=== PATIENT | female | born 1955 | race African-American/Black ===

== ENCOUNTER 2016-06-09 18:12 | Inpatient (IN) | payer SELFPAY ==
[2016-06-09] VITALS (9 sets, daily range): BP systolic 148–249; BP diastolic 70–128; PULSE 77–86; RESP 18; TEMP 97.8; O2SAT 96–98
[~2016-06-09] VITALS: Ht 157.5 cm; Wt 72.0 kg
[~2016-06-09 18:12] MED LIST: DICL50 PO
--- NOTE | 2016-06-09 18:52 | PD ---
HPI Chief Complaint: Neuro Symptoms/ Deficits Time Seen by Provider: 18:52 Travel History International Travel<30 days: No Contact w/Intl Traveler<30days: No Traveled to known affect area: No History of Present Illness HPI 60-year-old female presents to the emergency department for evaluation of numbness and tingling in right hand and right foot for about 3 hours. States that she took a nap this afternoon and when she woke up she had tingling in her right hand and foot which has persisted. States she called fire rescue who came out and noted her blood pressure was very elevated around 240/120. Patient admits to a history of hypertension but does not take any medications because she has not followed up with her PCP Dr. Ricardo in a while. She is complaining of a mild headache with lightheadedness. Denies any weakness, vision loss, nausea, vomiting, chest pain, shortness of breath, cough or cold symptoms. Denies any history of stroke or [place]. No other complaints. PFSH Past Medical History Cardiovascular Problems: Yes (PT STATES DOES NO TAKE MED) Diminished Hearing: No Hypertension: Yes Tetanus Vaccination: > 5 Years Influenza Vaccination: No ?: Not Past Surgical History Surgical History: No Previous Surgery Social History Alcohol Use: Yes (EVERY DAY 4-6 BEERS) Tobacco Use: Yes (1 PACK PER DAY) Substance Use: No Allergies-Medications (Allergen,Severity, Reaction): Coded Allergies: No Known Allergies (Unverified , 06/09/16) Reported Meds & Prescriptions Reported Meds & Active Scripts Active No Active Prescriptions or Reported Medications Review of Systems Except as stated in HPI: all other systems reviewed are Neg Physical Exam Narrative GENERAL: Well-nourished and well-developed pleasant female patient in no acute distress. SKIN: Warm and dry. HEAD: Normocephalic and atraumatic. No facial droop. EYES: No injection, drainage, or hyphema noted. PERRLA. EOMI. ENT: No nasal drainage noted. Oropharynx is clear. NECK: Supple and the trachea is midline. CARDIOVASCULAR: Regular rate and rhythm. RESPIRATORY: Breath sounds are equal bilaterally with no accessory muscle use, wheezing, rhonchi, or crackles. GASTROINTESTINAL: Abdomen is soft, non-tender, and nondistended. MUSCULOSKELETAL: No obvious deformities, swelling, cyanosis, or ecchymosis is present throughout the upper and lower extremities. Patient has full range of motion without any signs of neurovascular compromise. Strength 5/5 upper and lower extremities and equal bilaterally. NEUROLOGICAL: Awake, alert, and oriented. Normal speech and gait. Finger to nose test is normal. [id number] test is normal. No pronator drift. Cranial nerves are grossly intact. Reports paresthesias in right hand and right foot. Data Data Last Documented VS Vital Signs Date Time Temp Pulse Resp B/P Pulse Ox O2 Delivery O2 Flow Rate FiO2 06/09/16 20:17 86 18 238/117 06/09/16 19:05 96 Room Air 06/09/16 18:38 97.8 Orders Labetalol Inj (Trandate Inj) (06/09/16 19:00) Complete Blood Count With Diff (06/09/16 18:50) Comprehensive Metabolic Panel (06/09/16 18:50) Prothrombin Time / Inr (Pt) (06/09/16 18:50) Act Partial Throm Time (Ptt) (06/09/16 18:50) Iv Access Insert/Monitor (06/09/16 18:50) Ecg Monitoring (06/09/16 18:50) Oximetry (06/09/16 18:50) Sodium Chloride 0.9% Flush (Ns Flush) (06/09/16 19:00) Electrocardiogram (06/09/16 18:50) Chest, Single Ap (06/09/16 18:50) Ct Brain W/O Iv Contrast(Rout) (06/09/16 18:50) Hydralazine Inj (Apresoline Inj) (06/09/16 19:45) Labetalol Inj (Trandate Inj) (06/09/16 20:30) Admit Order (Ed Use Only) (06/09/16 21:05) Labs Laboratory Tests Test 06/09/16 06/09/16 19:05 20:00 White Blood Count 6.3 TH/MM3 Red Blood Count 4.58 MIL/MM3 Hemoglobin 12.3 GM/DL Hematocrit 37.8 % Mean Corpuscular Volume 82.4 FL Mean Corpuscular Hemoglobin 26.8 PG Mean Corpuscular Hemoglobin 32.5 % Concent Red Cell Distribution Width 15.7 % Platelet Count 203 TH/MM3 Mean Platelet Volume 8.7 FL Neutrophils (%) (Auto) % Lymphocytes (%) (Auto) % Monocytes (%) (Auto) % Eosinophils (%) (Auto) % Basophils (%) (Auto) % Neutrophils # (Auto) TH/MM3 Lymphocytes # (Auto) TH/MM3 Monocytes # (Auto) TH/MM3 Eosinophils # (Auto) TH/MM3 Basophils # (Auto) TH/MM3 CBC Comment AUTO DIFF Differential Total Cells 100 Counted Neutrophils % (Manual) 58 % Band Neutrophils % 1 % Lymphocytes % 35 % Monocytes % 4 % Eosinophils % 2 % Neutrophils # (Manual) 3.7 TH/MM3 Differential Comment FINAL DIFF MANUAL Platelet Estimate NORMAL Platelet Morphology Comment NORMAL Target Cells 1+ Ovalocytes 1+ Acanthocytes OCC Keratocytes OCC Prothrombin Time 9.7 SEC Prothromb Time International 0.9 RATIO Ratio Activated Partial 26.7 SEC Thromboplast Time Sodium Level 142 MEQ/L Potassium Level 4.2 MEQ/L Chloride Level 111 MEQ/L Carbon Dioxide Level 23.3 MEQ/L Anion Gap 8 MEQ/L Blood Urea Nitrogen 19 MG/DL Creatinine 1.98 MG/DL Estimat Glomerular Filtration 31 ML/MIN Rate Random Glucose 89 MG/DL Calcium Level 8.5 MG/DL Total Bilirubin 0.3 MG/DL Aspartate Amino Transf 32 U/L (AST/SGOT) Alanine Aminotransferase 32 U/L (ALT/SGPT) Alkaline Phosphatase 91 U/L Total Protein 7.0 GM/DL Albumin 3.0 GM/DL [facility] Medical Decision Making Medical Screen Exam Complete: Yes Emergency Medical Condition: Yes Differential Diagnosis Hypertensive urgency versus intracranial hemorrhage versus TIA versus stroke versus other Narrative Course 60-year-old female presents to the emergency department for evaluation of numbness and tingling in the right hand and right foot with high blood pressure. The patient is afebrile. Her blood pressure is elevated to 223/128. She reports paresthesias in the right hand and right foot but there is no motor weakness. No focal neurologic deficits. IV access is obtained, labs are been drawn and sent. Patient is given labetalol 10 mg IV. EKG shows sinus rhythm with no acute ST elevations or depressions. 20 minutes after labetalol patient is reassessed and her blood pressure has remained unchanged. She is given hydralazine 10 mg IV. CBC is unremarkable. CMP reveals renal insufficiency which appears to be consistent with previous lab values at our facility. Chest x-ray is unremarkable. Head CT is unremarkable. The patient is reassessed and reports some mild improvement in her right hand and right foot paresthesias. Denies any weakness or worsening headache. Her blood pressure has remained elevated and unchanged despite labetalol and hydralazine. Therefore we'll place the patient on a labetalol drip. She'll be admitted to medicine service into the [facility]. I discussed the case with my attending physician Dr. Antonio who is aware of the patients history, physical examination findings, and treatment plan. Physician Communication Physician Communication I spoke with Dr. Baez [facility] who agrees to admit the patient to her service. Diagnosis Primary Impression: Hypertensive urgency Admitting Information Admitting Physician Requests: Admit Scripts No Active Prescriptions or Reported Meds Arlene Hernandez Jun 09, 2016 18:52
[2016-06-09] MEDS ORDERED: LABETALOL HCL 100 MG/20 ML VIAL IV PUSH ONE (19:00)
[2016-06-09] MEDS ORDERED: SODIUM CHLORIDE 0.9% FLUSH 5 ML FLUSH IVF PRN (19:00)
--- NOTE | 2016-06-09 19:11 | RADRPT ---
EXAM DATE/TIME: 06/09/2016 19:00 [facility] COMPARISON: No previous studies available for comparison. INDICATIONS : Chest pain MEDICAL HISTORY : Hypertension. SURGICAL HISTORY : None. ENCOUNTER: Initial ACUITY: 1 day PAIN SCORE: 0/10 LOCATION: Bilateral chest FINDINGS: A single view of the chest demonstrates the lungs to be symmetrically aerated without evidence of mas s, infiltrate or effusion. The cardiomediastinal contours are unremarkable. Osseous structures are intact. CONCLUSION: No evidence of acute cardiopulmonary disease. Vik Talley MD on June 09, 2016 at 19:09 Board Certified Radiologist. This report was verified electronically.
[2016-06-09 19:18] LABS: HEMATOCRIT 37.8 % (35.0-46.0); MEAN CELL VOLUME 82.4 FL (80.0-100.0); MEAN CORPUSCULAR HEMOGLOBIN 26.8 PG (27.0-34.0); MEAN CORPUSCULAR HGB CONC 32.5 % (32.0-36.0); PLATELET COUNT 203 TH/MM3 (150-450); RED BLOOD COUNT 4.58 MIL/MM3 (4.00-5.30); RED CELL DISTRIBUTION WIDTH 15.7 % (11.6-17.2); WHITE BLOOD COUNT 6.3 TH/MM3 (4.0-11.0)
[2016-06-09 19:30] LABS: APTT (PATIENT) 26.7 SEC (24.3-30.1); INTERNATIONAL NORMALIZED RATIO 0.9 RATIO; PROTHROMBIN TIME - PATIENT 9.7 SEC (9.8-11.6)
[2016-06-09 19:31] LABS: HEMO FLAGS AUTO DIFF
[2016-06-09] MEDS ORDERED: hydrALAZINE HCL 20 MG/ML VIAL IV PUSH ONE (19:45)
--- NOTE | 2016-06-09 19:49 | RADRPT ---
EXAM DATE/TIME: 06/09/2016 19:20 [facility] COMPARISON: No previous studies available for comparison. INDICATIONS : Right-sided weakness and numbness. RADIATION DOSE: 56.77 CTDIvol (mGy) MEDICAL HISTORY : Hypertension. SURGICAL HISTORY : None. ENCOUNTER: Initial ACUITY: 1 day PAIN SCALE: 0/10 LOCATION: Right cranial TECHNIQUE: Multiple contiguous axial images were obtained of the head. Using automated exposure control and adj ustment of the mA and/or kV according to patient size, radiation dose was kept as low as reasonably a chievable to obtain optimal diagnostic quality images. FINDINGS: CEREBRUM: The ventricles are normal for age. No evidence of midline shift, mass lesion, hemorrhage or acute in farction. No extra-axial fluid collections are seen. POSTERIOR FOSSA: The cerebellum and brainstem are intact. The 4th ventricle is midline. The cerebellopontine angle i s unremarkable. EXTRACRANIAL: The visualized portion of the orbits is intact. SKULL: The calvaria is intact. No evidence of skull fracture. CONCLUSION: Negative noncontrast head CT. Vik Talley MD on June 09, 2016 at 19:48 Board Certified Radiologist. This report was verified electronically.
[2016-06-09 20:15] LABS: BANDS 1 % (0-6); EOSINOPHILS 2 % (0-4); NEUTROPHIL # MANUAL DIFF 3.7 TH/MM3 (1.8-7.7); POLYS (SEG NEUTROPHILS) 58 % (16-70); WBC DIFF SAMPLE 100
[2016-06-09 20:17] LABS: ACANTHOCYTES OCC (NORMAL); KERATOCYTES OCC (NORMAL); OVALOCYTES 1+ (NORMAL)
[2016-06-09 20:19] LABS: PLATELET ESTIMATE SMEAR NORMAL (NORMAL); PLATELET MORPHOLOGY NORMAL (NORMAL); SCAN/DIFF FINAL DIFF MANUAL; TARGET CELLS 1+ (NORMAL)
[2016-06-09] MEDS ORDERED: LABETALOL INJ 500 MG in SODIUM CHLORIDE 0.9% INJ 150 ML IV SCH (20:30)
[2016-06-09 20:37] LABS: ANION GAP 8 MEQ/L (5-15); BICARBONATE 23.3 MEQ/L (21.0-32.0); BLOOD UREA NITROGEN 19 MG/DL (7-18); CHLORIDE 111 MEQ/L (98-107); GLOMERULAR FILTRATION RATE 31 ML/MIN (>89); POTASSIUM 4.2 MEQ/L (3.5-5.1); SODIUM (NA) 142 MEQ/L (136-145)
[2016-06-09 20:40] LABS: ALKALINE PHOSPHATASE 91 U/L (45-117); ALT (GPT) 32 U/L (10-53); AST (GOT) 32 U/L (15-37); TOTAL BILIRUBIN ADULT 0.3 MG/DL (0.2-1.0)
[2016-06-09] MEDS ORDERED: ONDANSETRON HCL 4 MG/2 ML VIAL IVP PRN (21:15)
[2016-06-09] MEDS ORDERED: BISACODYL 10 MG SUPP PR PRN (21:15)
[2016-06-09] MEDS ORDERED: TEMAZEPAM 15 MG CAP PO PRN (21:15)
[2016-06-09] MEDS ORDERED: SENNOSIDES 8.6 MG TAB PO PRN (21:15)
[2016-06-09] MEDS ORDERED: MAGNESIUM HYDROXIDE SUSP 30 ML CUP PO PRN (21:15)
[2016-06-09] MEDS ORDERED: ACETAMINOPHEN 325 MG TAB PO PRN (21:15)
[2016-06-09] MEDS ORDERED: SODIUM CHLORIDE 0.9% FLUSH 5 ML FLUSH FLUSH PRN (21:15)
[2016-06-09] MEDS ORDERED: PROCHLORPERAZINE 25 MG SUPP PR PRN (21:15)
[2016-06-09] MEDS: ENOXAPARIN SODIUM 40 MG/0.4 ML SYRINGE SQ SCH (22:43)
--- NOTE | 2016-06-09 23:11 | HHI.HP ---
[facility] Service [facility] Primary Care Physician No Primary Care Physician Admission Diagnosis Hypertensive Urgency Diagnoses: Chief Complaint: mumbness on her right side Travel History International Travel<30 Days: No Contact w/Intl Traveler <30 Da: No Traveled to Known Affected Are: No History of Present Illness 60-year-old female with PMH of HTN presents to the emergency department for evaluation of numbness and tingling in right hand and right foot for about 3 hours. States that she took a nap this afternoon and when she woke up she had tingling in her right hand and foot which has persisted. States she called fire rescue who came out and noted her blood pressure was very elevated around 240/120. Patient admits to a history of hypertension but does not take any medications because she has not followed up with her PCP Dr. Ricardo in a while. She is complaining of a mild headache with lightheadedness. Denies any weakness, vision loss, nausea, vomiting, chest pain, shortness of breath, cough or cold symptoms. Denies any history of stroke or [place]. No other complaints. Review of Systems Constitutional: DENIES: Fever, Chills, Change in appetite Endocrine: DENIES: Heat/cold intolerance Eyes: DENIES: Blurred vision, Eye pain Ears, nose, mouth, throat: DENIES: Tinnitus, Hearing loss, Vertigo, Nasal discharge, Oral lesions, Throat pain, Hoarseness, Ear Pain, Running Nose, Epistaxis, Sinus Pain, Toothache, Odynophagia Respiratory: DENIES: Apneas, Cough, Snoring, Wheezing, Hemoptysis, Sputum production, Shortness of breath Cardiovascular: DENIES: Chest pain, Palpitations, Syncope, Dyspnea on Exertion , PND, Lower Extremity Edema, Orthopnea, Claudication Gastrointestinal: DENIES: Abdominal pain, Black stools, Bloody stools, Constipation, Diarrhea, Nausea, Vomiting, Difficulty Swallowing, Anorexia Genitourinary: DENIES: Urinary frequency, Urinary incontinence, Urgency, Hematuria Musculoskeletal: COMPLAINS OF: Joint pain Integumentary: DENIES: Abnormal pigmentation, Pruritus, Rash, Nail changes, Breast masses, Breast skin changes, Nipple discharge Neurologic: COMPLAINS OF: Paresthesias, DENIES: Abnormal gait, Headache, Localized weakness, Seizures, Speech Problems, Tremor, Poor Balance Psychiatric: DENIES: Anxiety, Mood changes Past Family Social History Past Medical History Hypertension, follows with Dr. Ricardo at the [facility] Past Surgical History No surgeries in the past Allergies: Coded Allergies: No Known Allergies (Unverified , 06/09/16) Family History Mother had ESRD on hemodialysis Father diabetes, hypertension, coronary artery disease. Brother and sister with cancer unspecified. Social History Alcohol use for to 6 beers sometimes per day. Tobacco use 1 PPD since the age of 19 Denies illicit drug use Physical Exam Vital Signs Vital Signs Date Time Temp Pulse Resp B/P Pulse Ox O2 Delivery O2 Flow Rate FiO2 06/09/16 22:40 79 18 174/95 06/09/16 21:47 81 18 174/91 96 Room Air 06/09/16 20:17 86 18 238/117 06/09/16 19:55 77 249/123 06/09/16 19:13 77 226/113 06/09/16 19:05 96 Room Air 06/09/16 18:51 74 18 98 06/09/16 18:38 97.8 77 18 223/128 97 Physical Exam GENERAL: This is a well-nourished, well-developed patient, in no apparent distress. SKIN: No rashes, ecchymoses or lesions. Cool and dry. HEAD: Atraumatic. Normocephalic. No temporal or scalp tenderness. EYES: Pupils equal round and reactive. Extraocular motions intact. No scleral icterus. No injection or drainage. ENT: Nose without bleeding, purulent drainage or septal hematoma. Throat without erythema, tonsillar hypertrophy or exudate. Uvula midline. Airway patent. NECK: Trachea midline. No JVD or lymphadenopathy. Supple, nontender, no meningeal signs. CARDIOVASCULAR: Regular rate and rhythm without murmurs, gallops, or rubs. RESPIRATORY: Clear to auscultation. Breath sounds equal bilaterally. No wheezes , rales, or rhonchi. GASTROINTESTINAL: Abdomen soft, non-tender, nondistended. No hepato-splenomegaly , or palpable masses. No guarding. MUSCULOSKELETAL: Extremities without clubbing, cyanosis, or edema. No joint tenderness, effusion, or edema noted. No calf tenderness. Negative Homans sign bilaterally. NEUROLOGICAL: Awake and alert. Cranial nerves II through XII intact. Motor and sensory grossly within normal limits. Five out of 5 muscle strength in all muscle groups. Normal speech. Laboratory Laboratory Tests Test 06/09/16 06/09/16 19:05 20:00 White Blood Count 6.3 Red Blood Count 4.58 Hemoglobin 12.3 Hematocrit 37.8 Mean Corpuscular Volume 82.4 Mean Corpuscular Hemoglobin 26.8 Mean Corpuscular Hemoglobin 32.5 Concent Red Cell Distribution Width 15.7 Platelet Count 203 Mean Platelet Volume 8.7 Neutrophils (%) (Auto) Lymphocytes (%) (Auto) Monocytes (%) (Auto) Eosinophils (%) (Auto) Basophils (%) (Auto) Neutrophils # (Auto) Lymphocytes # (Auto) Monocytes # (Auto) Eosinophils # (Auto) Basophils # (Auto) CBC Comment AUTO DIFF Differential Total Cells 100 Counted Neutrophils % (Manual) 58 Band Neutrophils % 1 Lymphocytes % 35 Monocytes % 4 Eosinophils % 2 Neutrophils # (Manual) 3.7 Differential Comment FINAL DIFF MANUAL Platelet Estimate NORMAL Platelet Morphology Comment NORMAL Target Cells 1+ Ovalocytes 1+ Acanthocytes OCC Keratocytes OCC Prothrombin Time 9.7 Prothromb Time International 0.9 Ratio Activated Partial 26.7 Thromboplast Time Sodium Level 142 Potassium Level 4.2 Chloride Level 111 Carbon Dioxide Level 23.3 Anion Gap 8 Blood Urea Nitrogen 19 Creatinine 1.98 Estimat Glomerular Filtration 31 Rate Random Glucose 89 Calcium Level 8.5 Total Bilirubin 0.3 Aspartate Amino Transf 32 (AST/SGOT) Alanine Aminotransferase 32 (ALT/SGPT) Alkaline Phosphatase 91 Troponin I 0.02 Total Protein 7.0 Albumin 3.0 Result Diagram: 06/09/16190406/09/161999 Imaging Last Impressions Head CT 06/09/161849 Signed Impressions: Service Date/Time: June 19:20 - CONCLUSION: Negative noncontrast head CT. Vik Talley MD Chest X-Ray 06/09/161849 Signed Impressions: Service Date/Time: June 19:00 - CONCLUSION: No evidence of acute cardiopulmonary disease. Vik Talley MD Assessment and Plan Assessment and Plan 60-year-old female with past medical history of hypertension with Hypertensive emergency. BP on admission 223/128 with repeat still elevated ADRIANA on likely CKD no known baseline kidney indices Monitor on physical damage appraiser VS Check lipid panel, a1c Was given labetalol 10 mg IV, hydralazine 10 mg IV. BP still elevated. Started on labetalol drip, titrate as need. EKG shows sinus rhythm with no acute ST elevations or depressions. Chest x-ray is unremarkable. Head CT is unremarkable. Improvement in her right hand and right foot paresthesias while in the ED. DVT ppx lovenox/teds/SCD Code Status Full code Discussed Condition With Patient, nurse, family at bedside, ED physician. Physician Certification 2 Midnight Certification Type: Admission for Inpatient Services Order for Inpatient Services The services are ordered in accordance with Medicare regulations or non- Medicare payer requirements, as applicable. In the case of services not specified as inpatient-only, they are appropriately provided as inpatient services in accordance with the 2-midnight benchmark. Estimated LOS (days): 3 days is the estimated time the patient will need to remain in the hospital, assuming treatment plan goals are met and no additional complications. Post-Hospital Plan: Home Saundra Baez MD Jun 09, 2016 23:11
[2016-06-10] VITALS (21 sets, daily range): BP systolic 124–193; BP diastolic 68–108; PULSE 68–92; RESP 17–18; TEMP 98–98.4; O2SAT 96–100
[2016-06-10 06:17] LABS: HEMATOCRIT 34.4 % (35.0-46.0); MEAN CELL VOLUME 82.1 FL (80.0-100.0); MEAN CORPUSCULAR HEMOGLOBIN 26.8 PG (27.0-34.0); MEAN CORPUSCULAR HGB CONC 32.7 % (32.0-36.0); PLATELET COUNT 177 TH/MM3 (150-450); RED BLOOD COUNT 4.19 MIL/MM3 (4.00-5.30); RED CELL DISTRIBUTION WIDTH 15.3 % (11.6-17.2); WHITE BLOOD COUNT 5.2 TH/MM3 (4.0-11.0)
[2016-06-10 06:32] LABS: HEMO FLAGS AUTO DIFF
[2016-06-10 06:35] LABS: BICARBONATE 22.4 MEQ/L (21.0-32.0); POTASSIUM 3.9 MEQ/L (3.5-5.1)
[2016-06-10 07:39] LABS: BASOPHILS 1 % (0-2); EOSINOPHILS 1 % (0-4); POLYS (SEG NEUTROPHILS) 57 % (16-70); WBC DIFF SAMPLE 100
[2016-06-10 07:40] LABS: PLATELET ESTIMATE SMEAR NORMAL (NORMAL); PLATELET MORPHOLOGY NORMAL (NORMAL); SCAN/DIFF FINAL DIFF MANUAL
[2016-06-10] MEDS ORDERED: hydrALAZINE HCL 20 MG/ML VIAL IV PRN (08:30)
[2016-06-10] MEDS ORDERED: LABETALOL HCL 100 MG/20 ML VIAL IV PRN (08:30)
[2016-06-10] MEDS ORDERED: cloNIDine HCL 0.1 MG TAB PO PRN (08:30)
[2016-06-10] MEDS: SODIUM CHLORIDE 0.9% FLUSH 5 ML FLUSH FLUSH SCH ×2 (08:51→20:03)
--- NOTE | 2016-06-10 13:00 | HHI.PR ---
Subjective Remarks Feeling better. Mild tingling over the right hand. No complaint of headaches. No complaints of weakness or chest pain. Objective Vitals Vital Signs Date Time Temp Pulse Resp B/P Pulse Ox O2 Delivery O2 Flow Rate FiO2 06/10/16 12:27 92 06/10/16 11:40 73 06/10/16 11:40 98.0 73 18 165/78 100 06/10/16 10:02 73 06/10/16 09:59 83 18 155/88 06/10/16 09:12 83 06/10/16 09:12 98.2 83 18 193/108 100 06/10/16 08:16 182/105 06/10/16 07:56 69 17 187/104 98 Room Air 06/10/16 07:00 Nasal Cannula 2.00 06/10/16 04:59 80 18 167/85 96 Room Air 06/10/16 01:07 96 Room Air 06/10/16 01:06 78 18 153/84 96 06/09/16 23:37 77 18 148/70 96 06/09/16 23:00 98 21 06/09/16 22:40 79 18 174/95 06/09/16 21:47 81 18 174/91 96 Room Air 06/09/16 20:17 86 18 238/117 06/09/16 19:55 77 249/123 06/09/16 19:13 77 226/113 06/09/16 19:05 96 Room Air 06/09/16 18:51 74 18 98 06/09/16 18:38 97.8 77 18 223/128 97 Result Diagram: 06/10/1630 06/10/16 0530 Objective Remarks GENERAL: This is a well-nourished, well-developed patient, in no apparent distress. CARDIOVASCULAR: Regular rate and rhythm RESPIRATORY: Clear to auscultation. Breath sounds equal bilaterally. No wheezes , rales, or rhonchi. GASTROINTESTINAL: Abdomen soft, non-tender, nondistended. Normal active bowel sounds MUSCULOSKELETAL: Extremities without clubbing, cyanosis, or edema. NEURO: Alert & Oriented x4 to person, place, time, situation. Moves all ext x4 A/P Problem List: (1) Hypertensive urgency ICD Code: I16.0 Status: Acute (2) CKD (chronic kidney disease) stage 3, GFR 30-59 ml/min ICD Code: N18.3 Status: Chronic Assessment and Plan 60-year-old female with past medical history of hypertension with 1. Hypertensive urgency with IV labetalol initiate emergency room. BP on admission 223/128 2. Acute kidney injury on likely CKD stage III no known baseline kidney indices Monitor on telemetry Start patient on Norvasc. Clonidine when necessary to be initiated along with IV labetalol, hydralazine as needed. Check lipid panel, HgA1c Started on labetalol drip in the emergency room and will titrate off. EKG shows sinus rhythm with no acute ST elevations or depressions. 3. DVT prophylaxisLovenox, teds SCDs Discharge Planning Possible discharge in the morning if blood pressure is better controlled. Josseline Patel MD Jun 10, 2016 13:00
--- NOTE | 2016-06-10 15:34 | EKG ---
Date Performed: 06/09/2016 Time Performed: 19:10:04 PTAGE: 60 years EKG: Sinus rhythm WITH SHORT MA INTERVAL MINIMAL VOLTAGE CRITERIA FOR LVH, CONSIDER NORMAL VARIANT BORDERLINE ECG NO PREVIOUS TRACING DOCTOR: Dorothy Manjarrez Interpretating Date/Time 06/10/2016 15:32:32
--- NOTE | 2016-06-10 15:36 | EKG ---
Date Performed: 06/10/2016 Time Performed: 01:02:00 PTAGE: 60 years EKG: NORMAL Sinus rhythm SHORT NH /LIKELY NO SIGNIFICANT CHANGE. NORMAL ECG PREVIOUS TRACING : 06/09/2016 19.10 DOCTOR: Dorothy Manjarrez Interpretating Date/Time 06/10/2016 15:34:09
[2016-06-10] MEDS: LABETALOL HCL 200 MG TAB PO SCH (20:02)
[2016-06-10] MEDS: ENOXAPARIN SODIUM 40 MG/0.4 ML SYRINGE SQ SCH (20:09)
[2016-06-11] VITALS (13 sets, daily range): BP systolic 147–172; BP diastolic 72–95; PULSE 60–77; RESP 18; TEMP 97.9–98.6; O2SAT 97–100
[2016-06-11 06:52] LABS: HDL CHOLESTEROL 125.5 MG/DL (40.0-60.0)
--- NOTE | 2016-06-11 08:12 | HHI.PR ---
Subjective Remarks Feels much better. No pain. No paresthesias. Denies change in vision or motor deficit. Normal speech. Feels much better and wants to go home. Objective Vitals Vital Signs Date Time Temp Pulse Resp B/P Pulse Ox O2 Delivery O2 Flow Rate FiO2 06/11/16 06:00 72 06/11/16 05:00 67 06/11/16 04:00 98.6 69 18 147/72 97 06/11/16 04:00 Room Air 06/11/16 04:00 69 06/11/16 03:00 73 06/11/16 02:00 70 06/11/16 01:00 75 06/11/16 00:00 76 06/10/16 23:44 Room Air 06/10/16 23:44 98.4 76 18 124/68 98 06/10/16 23:00 73 06/10/16 22:00 74 06/10/16 21:00 72 06/10/16 20:00 98.0 77 18 148/77 99 06/10/16 20:00 77 06/10/16 20:00 Room Air 06/10/16 18:05 73 06/10/16 17:46 148/92 06/10/16 17:10 74 06/10/16 16:21 74 06/10/16 15:31 98.2 68 18 171/102 99 06/10/16 15:31 68 06/10/16 14:01 83 06/10/16 13:07 80 06/10/16 12:27 92 06/10/16 11:40 73 06/10/16 11:40 98.0 73 18 165/78 100 06/10/16 10:02 73 06/10/16 09:59 83 18 155/88 06/10/16 09:12 83 06/10/16 09:12 98.2 83 18 193/108 100 06/10/16 08:16 182/105 I/O 06/10/16 06/10/16 06/10/16 06/11/16 06/11/16 06/11/16 07:00 15:00 23:00 07:00 15:00 23:00 Intake Total 720 ml 242 ml Output Total 700 ml Balance 720 ml -458 ml Intake Oral 720 ml 240 ml IV Total 2 ml Output Urine Total 700 ml # Voids 4 # Bowel Movements 1 1 Result Diagram: 06/10/16 0530 06/10/16 0530 Imaging Last Impressions Head CT 06/09/161849 Signed Impressions: Service Date/Time: June 19:20 - CONCLUSION: Negative noncontrast head CT. Vik Talley MD Chest X-Ray 06/09/161849 Signed Impressions: Service Date/Time: June 19:00 - CONCLUSION: No evidence of acute cardiopulmonary disease. Vik Talley MD Objective Remarks GENERAL: This is a well-nourished, well-developed patient, in no apparent distress. CARDIOVASCULAR: Regular rate and rhythm RESPIRATORY: Clear to auscultation. Breath sounds equal bilaterally. No wheezes , rales, or rhonchi. GASTROINTESTINAL: Abdomen soft, non-tender, nondistended. Normal active bowel sounds MUSCULOSKELETAL: Extremities without clubbing, cyanosis, or edema. NEURO: Alert & Oriented x4 to person, place, time, situation. Moves all ext x4 A/P Problem List: (1) Hypertensive urgency ICD Code: I16.0 Status: Acute (2) CKD (chronic kidney disease) stage 3, GFR 30-59 ml/min ICD Code: N18.3 Status: Chronic Assessment and Plan 60-year-old female with past medical history of hypertension with 1. Hypertensive urgency with IV labetalol initiated in emergency room. BP on admission 223/128. Switch to PO meds. BP controlled by PO meds. 2. Acute kidney injury on likely CKD stage III no known baseline kidney indices Monitor on telemetry Start patient on Norvasc. Clonidine when necessary to be initiated along with IV labetalol, hydralazine as needed. Check lipid panel, HgA1c Started on labetalol drip in the emergency room and will titrate off. EKG shows sinus rhythm with no acute ST elevations or depressions. 3. DVT prophylaxisLovenox, teds SCDs Discharge Planning Discharge home in fairly well condition To follow up with PCP and consultants. Meds per med reconciliations. Activity ad jonathan Diet: Healthy heart diet Saundra Baez MD Jun 11, 2016 08:12
[2016-06-11] MEDS ORDERED: AMLO10 PO (08:13)
[2016-06-11] MEDS ORDERED: LABE200T2 PO (08:13)
--- NOTE | 2016-06-11 08:13 | HHI.DCPOC ---
Discharge Care Plan Goals to Promote Your Health * To prevent worsening of your condition and complications * To maintain your health at the optimal level Directions to Meet Your Goals Take your medications as prescribed Follow your dietary instruction Follow activity as directed Keep your appointments as scheduled Take your immunizations and boosters as scheduled If your symptoms worsen call your PCP, if no PCP go to Urgent Care Center or Emergency Room Smoking is Dangerous to Your Health. Avoid second hand smoke Call the 24-hour hour crisis hotline for domestic abuse at Saundra Baez MD Jun 11, 2016 08:13
[2016-06-11] MEDS: SODIUM CHLORIDE 0.9% FLUSH 5 ML FLUSH FLUSH SCH (09:00)
[2016-06-11] MEDS: LABETALOL HCL 200 MG TAB PO SCH (09:00)
[2016-07-07] MEDS ORDERED: AMLO10 PO (10:45)
[2016-07-07] MEDS ORDERED: LABE200T2 PO (10:45)
== END 2016-06-11 14:40 | disposition home or self-care (01) | DRG 305 ==
LOC: NEPC 18:12 → NEDA 21:07 → NEDH 06-10 01:07 → HCIS 06-10 08:45
PROVIDERS: ADMIT Hospitalist; ATTEND Hospitalist
DX: I16.0 Hypertensive urgency (principal); N17.9 Acute kidney failure, unspecified; N18.3 Chronic kidney disease, stage 3 (moderate); R20.2 Paresthesia of skin; I12.9 Hypertensive chronic kidney disease with stage 1 through stage 4 chronic kidney disease, or unspecified chronic kidney disease; F17.210 Nicotine dependence, cigarettes, uncomplicated
CPT/HCPCS: 70450; 71010; 80048; 80053; 80061; 84484; 85007; 85027; 85610; 85730; 93005; 96374; 96375; J0360; J1650